=== PATIENT | female | born 1975 | race Caucasian/White ===

== ENCOUNTER 2016-09-20 06:03 | Emergency (ER) | payer BC ==
[~2016-09-20] VITALS: Ht 162.6 cm; Wt 90.7 kg
--- NOTE | 2016-09-20 06:03 | NUR ---
Placed in room 08 . Placed on cardiac care unit nurse, blood pressure machine and pulse oximeter. To gown for exam. Side rails up. Report given to DARLENE Lamas.
[2016-09-20 06:04] VITALS: BP 116/65; PULSE 120; RESP 18; TEMP 96.8; O2SAT 98
--- NOTE | 2016-09-20 06:04 | NUR ---
ASSISTED FROM PARKING LOT IN WHEELCHAIR TO ER. PLACED IN BED #8 AND TRIAGED. REPORT GIVEN TO SHANTI
--- NOTE | 2016-09-20 06:05 | NUR ---
Patient AAO x4, sitting in chair, c/o Left lateral ankle pain 8/10 and swelling. Patient stated she was in a exercise class and during a running exercise "rolled" her ankle and her ankle "instantly started swelling and the pain started." Patient denies chest pain, denies shortness of breath. No acute distress noted. Will continue to monitor.
--- NOTE | 2016-09-20 06:07 | NUR ---
ER at bedside examining patient.
[2016-09-20] MEDS ORDERED: IBUPROFEN 800 MG TABLET PO ONE (06:15)
--- NOTE | 2016-09-20 06:50 | NUR ---
x-ray at bedside.
[2016-09-20 07:05] VITALS: BP 115/68; PULSE 89; RESP 18; TEMP 96.8; O2SAT 98
--- NOTE | 2016-09-20 07:05 | NUR ---
Patient given written and verbal discharge instructions and verbalizes understanding. ER MD discussed with patient the results and treatment provided. Patient in stable condition. ID arm band removed. Rx of ibuprofen given. Patient educated on pain management and to follow up with PMD. Pain Scale 0/10 . Opportunity for questions provided and answered.
== END 2016-09-20 07:05 | disposition home or self-care (01) ==
LOC: SED 06:03
DX: S93.402A Sprain of unspecified ligament of left ankle, initial encounter (principal); X50.1XXA Overexertion from prolonged static or awkward postures, initial encounter; Y93.B9 Activity, other involving muscle strengthening exercises; Y99.8 Other external cause status; Y92.89 Other specified places as the place of occurrence of the external cause
CPT/HCPCS: 99284